=== PATIENT | male | born 1995 | race Caucasian/White ===

== ENCOUNTER 2018-04-26 19:40 | Emergency (ER) | payer SELFPAY ==
[2018-04-26 20:00] VITALS: BP 125/79
--- NOTE | 2018-04-26 20:14 | UC ---
Upper Extremity HPI - HPI Summary HPI Summary: This is scribe Severiano Menendez documenting for attending Dr. Yasmeen Hammond MD. A 23 y/o left-hand dominant male presents to [facility] c/o left shoulder pain with mild discomfort reaching 1/10 in severity. Currently the patient is doing better and is in mild pain, however, he noted that he has full ROM and the injury/pain has not had any hindrance on his work performance ("I can swim fine "). He noted that only certain positions is where he feels mild discomfort. His pain worsens when he raises his hand. Pt denies any neck pain, fall or numbness/ tingling in fingers. As per triage, "pt reports he hurt his left shoulder at work on . has full ROM but some positions hurt". According to the patient, he hurt his shoulder on (3 days ago) when he was walking on the ledge of the waterfall. In the process of attempting to walk across it, he was holding himself up with his left hand. Suddenly, when he moved over he felt a pop and his arm went numb. He was able to manage to swim to safety, however, since then there was a dull ache. Points to pain on the upper anterior arm which is worse with overhead activities. Able to sleep well. He denies any neck pain, numbness or tingling in his arms. Patient is left-hand dominant. 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 The patient took no medications for his pain. No PMHx of shoulder injury. Seasonal allergies and mangos. No major surgeries. - History of Current Complaint Chief Complaint: UCUpperExtremity Stated Complaint: SHOULDER INJURY Time Seen by Provider: 04/26/18 19:48 Hx Obtained From: Patient Onset/Duration: Sudden Onset, Lasting Days, Still Present Severity Initially: Mild Severity Currently: Mild Pain Intensity: 1 Pain Scale Used: 0-10 Numeric Location Of Pain: Is Diffuse - Left shoulder Character: Dull, Aching Aggravating Factor(s): Movement - In some positions. Alleviating Factor(s): Nothing Associated Signs And Symptoms: Negative: Fever, Numbness/Tingling - Allergies/Home Medications Allergies/Adverse Reactions: Allergies Allergy/AdvReac Type Severity Reaction Status Date / Time No Known Allergies Allergy Verified 04/26/18 20:01 PMH/Surg Hx/FS Hx/Imm Hx - Additional Past Medical History Additional PMH: Shoulder history: NEGATIVE. Previously Healthy: Yes Other Endocrine History: negative Other Cardiovascular History: negative Other Respiratory History: negative Other GI/ History: negative Other Neurological History: negative Other Psychological History: negative Other Cancer History: negative - Surgical History Surgical History: None - Family History Known Family History: Positive: None - Social History Alcohol Use: Daily Substance Use Type: Cocaine, Marijuana, Prescribed, Other Substance Use Comment - Amount & Last Used: not recently Smoking Status (MU): Never Smoked Tobacco Review of Systems Constitutional: Fever - NEGATIVE Skin: Negative Eyes: Negative ENT: Negative Respiratory: Negative Cardiovascular: Negative Gastrointestinal: Negative Genitourinary: Negative Motor: Negative Neurovascular: Negative Musculoskeletal: Arthralgia, Other: - POSITIVE: left shoulder pain; NEGATIVE: Neck pain Neurological: Negative, Numbness - NEGATIVE Psychological: Negative Is Patient Immunocompromised?: No All Other Systems Reviewed And Are Negative: Yes Physical Exam - Summary Physical Exam Summary: Appearance: Well-Appearing, No Pain Distress, Well-Nourished Eyes: conjunctiva clear, no discharge ENT: Hearing grossly normal, no muffled/hoarse voice. Neck: Normal, Supple Respiratory/Lung Sounds: Lungs clear, Normal breath sounds, No respiratory distress, No accessory muscle use Cardiovascular: RRR, No murmur Abdomen: Nontender, Soft, no guarding, not distended Bowel Sounds: Present Musculoskeletal: Normal Neurological: Alert, muscle tone normal Psychiatric:Normal, age appropriate behavior Skin: Normal, Warm, Dry, Normal color Left Shoulder: Inspection and Palpation: No visible deformities noted. No tenderness over AC joint, SC joint , minimal tenderness of the greater tuberosity/subacromial bursa region. No cervical spinal or paraspinal muscle tenderness. ROM:Full range of motion, painful at extreme range of motion in all planes Strength: supraspinatus 5/5, Infraspinatus 5/5, subscapularis 5/5, External rotation 5/5. Tone: Normal muscle tone of the shoulder. Special tests: Empty can test negative, Neer sign positive and Roman test negative, lift off test negative, bear hug test negative, cross arm test negative, Yergusson test and speed's test negative. Apprehension test negative. Willards's test negative. Normal distal sensation and pulses. Triage Information Reviewed: Yes Vital Signs: Initial Vital Signs Temp 99.7 F 04/26/18 19:53 Pulse 84 04/26/18 19:53 Resp 16 04/26/18 19:53 BP 125/79 04/26/18 19:53 Pulse Ox 99 04/26/18 19:53 Vital Signs Reviewed: Yes Upper Extremity Course/Dx - Course Course Of Treatment: In the UC course, the patient recieved no medications. Patient will be discharged with a diagnosis of rotator cuff injury. Patient is to start shoulder exercises and physicial therapy. Patient is to take Ibuprofen as needed for pain. Follow up with Orthopedics in 2 weeks. Pt is agreeable with this plan. - Differential Dx/Diagnosis Provider Diagnoses: Rotator Cuff strain Discharge - Sign-Out/Discharge Documenting (check all that apply): Patient Departure - DISCHARGE - Discharge Plan Condition: Stable Disposition: HOME Patient Education Materials: Rotator Cuff Injury (ED), Exercises for Shoulder Flexion and Extension (ED), Exercises for Internal and External Shoulder Rotation (ED), Exercises for Shoulder Abduction and Adduction (ED) Referrals: Antonina Donohue MD [Primary Care Provider] - Makenna Jay MD [Medical Doctor] - 2 Weeks Additional Instructions: Please start your shoulder exercises. Please start physical therapy . Take ibuprofen as needed for pain control Follow up with orthopedics in 2 weeks. Return to Urgent care / ER if symptoms get worse. - Billing Disposition and Condition Condition: STABLE Disposition: Home
== END 2018-04-26 20:21 | disposition home or self-care (01) ==
LOC: UCEAST 19:40
DX: S46.012A Strain of muscle(s) and tendon(s) of the rotator cuff of left shoulder, initial encounter (principal); X58.XXXA Exposure to other specified factors, initial encounter; Y93.89 Activity, other specified; Y92.9 Unspecified place or not applicable
CPT/HCPCS: 99201; G0463